=== PATIENT | male | born 1995 | race African-American/Black ===

== ENCOUNTER 2017-03-08 09:49 | Emergency (ER) | payer OTHER ==
[~2017-03-08] VITALS: Ht 175.3 cm; Wt 68.0 kg
[2017-03-08 09:54] VITALS: BP 116/74
== END 2017-03-08 10:44 | disposition home or self-care (01) ==
LOC: ER 09:49
DX: F41.9 Anxiety disorder, unspecified (principal); F32.9 Major depressive disorder, single episode, unspecified